=== PATIENT | male | born 1955 | race Caucasian/White ===

== ENCOUNTER → 2016-03-29 | Outpatient (CLI) | payer OTHER | END | disposition home or self-care (01) | LOC: CDC 11:53 | DX: I44.7 Left bundle-branch block, unspecified (principal); M75.122 Complete rotator cuff tear or rupture of left shoulder, not specified as traumatic; M75.42 Impingement syndrome of left shoulder | CPT/HCPCS: 93000 ==

== ENCOUNTER 2016-04-14 11:17 | Day surgery (SDC) | payer OTHER ==
[~2016-04-14] VITALS: Ht 185.4 cm; Wt 106.6 kg
[~2016-04-14 11:17] MED LIST: VOLTAREN75 MG PO; ZYRTEC10 M3 PO
[2016-04-14 12:18] VITALS: BP 126/84
[2016-04-14 17:04] VITALS: BP 129/75
[2016-04-14 18:00] VITALS: BP 130/78
== END 2016-04-14 18:10 | disposition home or self-care (01) ==
LOC: SDC 11:17
PROC: 0LS24ZZ Reposition Left Shoulder Tendon, Percutaneous Endoscopic Approach (ICD-10-PCS; principal; 2016-04-14)
PROC: 0MB24ZZ Excision of Left Shoulder Bursa and Ligament, Percutaneous Endoscopic Approach (ICD-10-PCS; principal; 2016-04-14)
PROC: 0LQ20ZZ Repair Left Shoulder Tendon, Open Approach (ICD-10-PCS; principal; 2016-04-14)
DX: M75.102 Unspecified rotator cuff tear or rupture of left shoulder, not specified as traumatic (principal); M75.42 Impingement syndrome of left shoulder; M75.22 Bicipital tendinitis, left shoulder; M19.012 Primary osteoarthritis, left shoulder; M54.9 Dorsalgia, unspecified; N40.0 Benign prostatic hyperplasia without lower urinary tract symptoms; K21.9 Gastro-esophageal reflux disease without esophagitis
CPT/HCPCS: C1713; J0330; J0690; J1100; J2250; J2370; J2405; J2795; J3010

== ENCOUNTER 2017-01-30 23:20 | Inpatient (IN) | payer OTHER ==
[~2017-01-30] VITALS: Ht 185.4 cm; Wt 99.7 kg
[~2017-01-30 23:20] MED LIST changes: +PREDNISONE5 MG PO
[2017-01-31] MEDS ORDERED: FEOSOL325 MG PO (05:58)
[2017-01-31 06:05] VITALS: BP 134/76
[2017-01-31 09:51] LABS: MCH 30.5 PG (29.0-34.0); MCHC 33.4 G/DL (30.0-36.0); MCV 91.1 FL (86-99); MEAN PLAT.VOLUME 9.5 uM^3 (9.0-12.4); PLATELET COUNT 187 K/uL (156-360); RBC DIS.WIDTH-CV 12.4 % (11.8-14.6); RBC DIS.WIDTH-SD 41.6 % (39-53); RED BLOOD COUNT 4.17 M/uL (4.00-5.50); WHITE BLOOD COUNT 5.2 K/uL (4.1-10.2)
[2017-01-31 10:50] VITALS: BP 95/58
[2017-01-31 15:55] VITALS: BP 155/77
[2017-01-31 20:17] VITALS: BP 129/63
[2017-02-01 00:25] VITALS: BP 131/76
[2017-02-01 04:27] VITALS: BP 128/67
[2017-02-01 05:32] LABS: HEMATOCRIT 36.7 % (38.0-50.0); MCV 89.7 FL (86-99)
[2017-02-01 06:03] LABS: ANION GAP 6 MEQ/L (2-14); CHLORIDE 101 MEQ/L (99-109); GFR ESTIMATE (CALCULATED) > 59 mL/min/; GLUCOSE 138 mg/dL (70-99); POTASSIUM 4.4 MEQ/L (3.7-5.4); SAMPLE HEMOLYSIS CHECK 0; SAMPLE ICTERIC CHECK 0; SAMPLE LIPEMIA CHECK 0; SODIUM 131 MEQ/L (136-147); UREA NITROGEN (BUN) 14 mg/dL (9-23)
[2017-02-01 09:48] VITALS: BP 132/74
[2017-02-01 11:00] VITALS: BP 125/73
[2017-02-01 15:42] VITALS: BP 122/78
[2017-02-01 20:10] VITALS: BP 127/72
[2017-02-02 00:01] VITALS: BP 135/73
[2017-02-02 04:20] VITALS: BP 135/66
[2017-02-02 06:59] LABS: HEMATOCRIT 38.1 % (38.0-50.0); MCV 91.6 FL (86-99)
[2017-02-02 07:22] LABS: ANION GAP 7 MEQ/L (2-14); CHLORIDE 104 MEQ/L (99-109); GFR ESTIMATE (CALCULATED) > 59 mL/min/; GLUCOSE 96 mg/dL (70-99); POTASSIUM 4.4 MEQ/L (3.7-5.4); SAMPLE HEMOLYSIS CHECK 0; SAMPLE ICTERIC CHECK 0; SAMPLE LIPEMIA CHECK 0; SODIUM 137 MEQ/L (136-147); UREA NITROGEN (BUN) 12 mg/dL (9-23)
[2017-02-02] MEDS ORDERED: LOVENOX40 MG/0.4 SC (07:57)
[2017-02-02] MEDS ORDERED: ENDOCET 5-3251 EACH PO (07:57)
[2017-02-02 08:00] VITALS: BP 130/72
[2017-02-02 12:00] VITALS: BP 118/67
== END 2017-02-02 13:28 | DRG 470 ==
LOC: ENRESERV 23:20 → 2SOUTH 01-31 05:30 → 3WEST 01-31 10:32 → 2SOUTH 01-31 12:28 → 3WEST 02-02 13:28
PROVIDERS: Orthopaedic Surgery; Physician Assistant
PROC: 0SRC0J9 Replacement of Right Knee Joint with Synthetic Substitute, Cemented, Open Approach (ICD-10-PCS; principal; 2017-01-31)
DX: M17.11 Unilateral primary osteoarthritis, right knee (principal); E87.1 Hypo-osmolality and hyponatremia; K21.9 Gastro-esophageal reflux disease without esophagitis; Z87.891 Personal history of nicotine dependence
CPT/HCPCS: 73560; 80048; 85014; 85018; 85027; C1713; J0131; J0690; J1650; J2250; J2405; J3010; J7030; J7050; J7512